=== PATIENT | female | born 1940 | race Caucasian/White ===

== ENCOUNTER → 2017-04-05 | Outpatient (CLI) | payer OTHER ==
[~2017-04-05] MED LIST: ADULT LOW STREN81 M2 PO; AMLODIPINE BESYL5 MG PO; BLOCADREN10 MG PO; CALCIUM +D & M1 EAC1 PO; DOMP10T PO; DOMPERIDONE1 GM; EVISTA60 MG PO; HYDROCHLOROTH12.5 M3 PO; NORVASC2.5 MG PO; POTASSIUM CHLO10 ME3 PO; PROTONIX40 MG PO; REGLAN10 MG; TORADOL10 MG PO; TYLENOL EXTRA500 MG PO; UROCIT-K15 MEQ PO; VITAMIN D32000 UNI1 PO; ZANTAC150 MG PO; ZETIA10 MG PO; ZOFRAN4 MG PO
== END | disposition home or self-care (01) ==
LOC: NUC 09:40
DX: K80.20 Calculus of gallbladder without cholecystitis without obstruction (principal)
CPT/HCPCS: 78226; A9537

== ENCOUNTER 2017-05-22 15:02 | Inpatient (IN) | payer OTHER ==
[~2017-05-22] VITALS: Ht 160 cm; Wt 69.8 kg
[2017-05-22 15:35] LABS: HEMATOCRIT 36.8 % (36.0-46.0); MCH 29.5 PG (29.0-34.0); MCHC 32.3 G/DL (30.0-36.0); MCV 91.3 FL (83-99); MEAN PLAT.VOLUME 11.3 uM^3 (9.5-12.4); PLATELET COUNT 208 K/uL (156-360); RBC DIS.WIDTH-CV 12.7 % (11.8-14.6); RBC DIS.WIDTH-SD 42.6 % (39-53); RED BLOOD COUNT 4.03 M/uL (3.80-5.20); WHITE BLOOD COUNT 11.9 K/uL (4.1-10.2)
[2017-05-22 15:43] LABS: CHLORIDE 106 mEq/L (99-109); POTASSIUM 3.8 mEq/L (3.7-5.4); SODIUM 142 mEq/L (136-147)
[2017-05-22 15:45] LABS: GLUCOSE 124 mg/dL (70-99)
[2017-05-22 15:47] LABS: ANION GAP 12 MEQ/L (2-14); TOTAL BILIRUBIN 2.5 mg/dL (0.0-1.0)
[2017-05-22 15:49] LABS: ALKALINE PHOSPHATASE 103 IU/L (3-129); GFR ESTIMATE (CALCULATED) > 59 mL/min/
[2017-05-22 15:50] LABS: UREA NITROGEN (BUN) 16 mg/dL (9-23)
[2017-05-22] MEDS ORDERED: TENORMIN25 MG PO (16:58)
[2017-05-22] MEDS ORDERED: LIPOFEN150 MG PO (16:59)
[2017-05-22] MEDS ORDERED: VALSARTAN-HCTZ1 EAC2 PO (16:59)
[2017-05-22 17:42] VITALS: BP 137/60
[2017-05-22 23:03] VITALS: BP 133/60
[2017-05-23 03:21] VITALS: BP 102/52
[2017-05-23 06:35] LABS: EOSINOPHIL (%) 0 % (0-5); HEMATOCRIT 29.9 % (36.0-46.0); IMMATURE GRANULOCYTE (%) 0.3 % (0.0-0.7); INSTRUMENT ABS NEUTROPHIL CT 4.8 K/uL; LYMPHOCYTE COUNT 0.8 K/uL (1.0-2.8); MCH 29.5 PG (29.0-34.0); MCHC 32.1 G/DL (30.0-36.0); MEAN PLAT.VOLUME 11.2 uM^3 (9.5-12.4); MONOCYTE (%) 7.7 % (3-12); MONOCYTE COUNT 0.5 K/uL (0-0.8); NEUTROPHIL (%) 78.5 % (45-76); NEUTROPHIL COUNT 4.8 K/uL (1.8-6.4); PLATELET COUNT 146 K/uL (156-360); RBC DIS.WIDTH-SD 43.8 % (39-53); RED BLOOD COUNT 3.25 M/uL (3.80-5.20); WHITE BLOOD COUNT 6.1 K/uL (4.1-10.2)
[2017-05-23 06:51] LABS: ALKALINE PHOSPHATASE 73 IU/L (3-129); DIRECT BILIRUBIN 0.2 mg/dL (0.0-0.3); LIPASE 219 U/L (1.0-51.0)
[2017-05-23 06:52] LABS: TOTAL BILIRUBIN 0.6 MG/DL (0.0-1.0)
[2017-05-23 06:53] LABS: ALKALINE PHOSPHATASE 75 IU/L (3-129); AMYLASE 131 IU/L (1-118); ANION GAP 12 MEQ/L (2-14); CHLORIDE 108 MEQ/L (99-109); GFR ESTIMATE (CALCULATED) > 59 mL/min/; GLUCOSE 66 mg/dL (70-99); POTASSIUM 3.9 MEQ/L (3.7-5.4); SAMPLE HEMOLYSIS CHECK 0; SAMPLE ICTERIC CHECK 0; SAMPLE LIPEMIA CHECK 0; SODIUM 141 MEQ/L (136-147); TOTAL BILIRUBIN 0.6 MG/DL (0.0-1.0); UREA NITROGEN (BUN) 19 mg/dL (9-23)
[2017-05-23 07:40] VITALS: BP 112/56
[2017-05-23 11:40] VITALS: BP 120/58
[2017-05-23 12:15] LABS: ABSOLUTE RETICULOCYTE CT. 0.1 M/uL (0.02-0.08); IMM.RETIC FRACTION 17.2 % (3-19); RETICULOCYTE COUNT 1.9 % (0.5-1.8)
[2017-05-23 13:07] LABS: IRON 21 MCG/DL (35-150)
[2017-05-23 13:25] LABS: FERRITIN 177 NG/ML (10-291)
[2017-05-23 15:35] VITALS: BP 116/59
[2017-05-23 20:40] VITALS: BP 126/60
[2017-05-24 00:11] VITALS: BP 117/59
[2017-05-24 06:49] LABS: HEMATOCRIT 29.9 % (36.0-46.0)
[2017-05-24 07:07] VITALS: BP 130/64
[2017-05-24 07:33] LABS: LIPASE 159 U/L (1.0-51.0)
[2017-05-24 07:34] LABS: AMYLASE 54 IU/L (1-118)
[2017-05-24 11:20] VITALS: BP 174/73
[2017-05-24 17:30] VITALS: BP 133/60
[2017-05-24 19:28] VITALS: BP 154/64
[2017-05-24 23:31] VITALS: BP 116/58
[2017-05-25 03:38] VITALS: BP 136/59
[2017-05-25 06:40] LABS: HEMATOCRIT 28.6 % (36.0-46.0); MCH 29.4 PG (29.0-34.0); MCHC 32.2 G/DL (30.0-36.0); MCV 91.4 FL (83-99); MEAN PLAT.VOLUME 11.6 uM^3 (9.5-12.4); PLATELET COUNT 144 K/uL (156-360); RBC DIS.WIDTH-CV 12.8 % (11.8-14.6); RBC DIS.WIDTH-SD 42.2 % (39-53); RED BLOOD COUNT 3.13 M/uL (3.80-5.20); WHITE BLOOD COUNT 6.2 K/uL (4.1-10.2)
[2017-05-25 07:14] LABS: ALKALINE PHOSPHATASE 58 IU/L (3-129); ANION GAP 7 MEQ/L (2-14); CHLORIDE 110 MEQ/L (99-109); GFR ESTIMATE (CALCULATED) > 59 mL/min/; POTASSIUM 4.5 MEQ/L (3.7-5.4); SAMPLE HEMOLYSIS CHECK 0; SAMPLE ICTERIC CHECK 0; SAMPLE LIPEMIA CHECK 0; SODIUM 141 MEQ/L (136-147); UREA NITROGEN (BUN) 11 mg/dL (9-23)
[2017-05-25 07:15] LABS: GLUCOSE 100 mg/dL (70-99); TOTAL BILIRUBIN 0.3 MG/DL (0.0-1.0)
[2017-05-25 07:29] VITALS: BP 132/50
[2017-05-25] MEDS ORDERED: TRAMADOL HCL50 MG PO (10:46)
== END 2017-05-25 13:41 | disposition home or self-care (01) | DRG 418 ==
LOC: EME 15:02 → 2EAST 16:00 → EDOF 16:00 → CANRESERV 16:25 → ENRESERV 16:25 → 2EAST 17:35
PROVIDERS: Nurse Practitioner Adult Health; Pediatrics; Physician Assistant; Surgery
PROC: 0FT44ZZ Resection of Gallbladder, Percutaneous Endoscopic Approach (ICD-10-PCS; principal; 2017-05-24)
DX: K85.10 Biliary acute pancreatitis without necrosis or infection (principal); K80.10 Calculus of gallbladder with chronic cholecystitis without obstruction; E78.5 Hyperlipidemia, unspecified; K57.90 Diverticulosis of intestine, part unspecified, without perforation or abscess without bleeding; K58.9 Irritable bowel syndrome, unspecified; M19.90 Unspecified osteoarthritis, unspecified site; I10 Essential (primary) hypertension; H26.9 Unspecified cataract; E04.9 Nontoxic goiter, unspecified; K31.84 Gastroparesis; R74.8 Abnormal levels of other serum enzymes; K21.9 Gastro-esophageal reflux disease without esophagitis; K76.0 Fatty (change of) liver, not elsewhere classified; D64.9 Anemia, unspecified; Z80.3 Family history of malignant neoplasm of breast; Z85.828 Personal history of other malignant neoplasm of skin; Z79.899 Other long term (current) drug therapy; Z87.891 Personal history of nicotine dependence; Z80.0 Family history of malignant neoplasm of digestive organs; Z87.442 Personal history of urinary calculi; Z82.49 Family history of ischemic heart disease and other diseases of the circulatory system; Z80.7 Family history of other malignant neoplasms of lymphoid, hematopoietic and related tissues; Z90.79 Acquired absence of other genital organ(s); Z84.1 Family history of disorders of kidney and ureter
CPT/HCPCS: 36415; 74020; 76705; 80053; 80076; 81003; 82150; 82272; 82728; 83010 90; 83540; 83690; 84466; 85014; 85018; 85025; 85027; 85045; 88304; 93306; 99281; 99285; J0131; J0330; J1100; J1650; J1885; J2405; J2710; J2765; J3010; J3480; J7030; J7050; S0028; S0074